=== PATIENT | male | born 1945 | race Caucasian/White ===

== ENCOUNTER 2016-02-24 14:22 | Emergency (ER) | payer MEDICARE, OTHER | END 2016-02-24 21:09 | disposition home or self-care (01) | LOC: ER 14:22 | DX: J44.1 Chronic obstructive pulmonary disease with (acute) exacerbation (principal); J01.00 Acute maxillary sinusitis, unspecified; Z79.899 Other long term (current) drug therapy; Z79.82 Long term (current) use of aspirin; Z87.891 Personal history of nicotine dependence; E78.00 Pure hypercholesterolemia, unspecified; I10 Essential (primary) hypertension; F32.9 Major depressive disorder, single episode, unspecified; K21.9 Gastro-esophageal reflux disease without esophagitis; F41.1 Generalized anxiety disorder; Z85.46 Personal history of malignant neoplasm of prostate | CPT/HCPCS: 36415; 36600; 70450; 71010; 80053; 82553; 82803; 83880; 84484; 85025; 93005 ==